=== PATIENT | male | born 1965 | race African-American/Black ===

== ENCOUNTER 2017-05-04 14:12 | Emergency (ER) | payer OTHER ==
[2017-05-04] MEDS: LIDOCAINE 1% (MDV) 20 ML INJ SC (16:51)
== END 2017-05-04 17:00 | disposition home or self-care (01) ==
LOC: FTE 14:12
DX: L72.3 Sebaceous cyst (principal); Z79.82 Long term (current) use of aspirin; Z87.891 Personal history of nicotine dependence
CPT/HCPCS: 10061; 99283-25

== ENCOUNTER 2017-05-06 12:52 | Emergency (ER) | payer OTHER ==
[2017-05-06] MEDS: KETOROLAC 60 MG INJ IM (15:05)
== END 2017-05-06 15:45 | disposition home or self-care (01) ==
LOC: FTE 12:52
DX: M25.852 Other specified joint disorders, left hip (principal); Z79.82 Long term (current) use of aspirin; Z87.891 Personal history of nicotine dependence
CPT/HCPCS: 96372; 99284-25